=== PATIENT | female | born 1970 | race Caucasian/White ===

== ENCOUNTER → 2017-05-28 | Outpatient (CLI) | payer BC ==
[~2017-05-28] MED LIST: ESTRADIOL PO; SULF800T23 PO; [UNRECOGNIZED DRUG - CODE] SC
--- NOTE | 2017-05-28 08:41 | DIAGNOSTIC IMAGING REPORT ---
KUB HISTORY: 46-year-old female presents with urinary tract infection and history of kidney stones. COMPARISON: Renal scan 10/31/2016, KUB radiograph 07/04/2016. TECHNIQUE: KUB radiograph. FINDINGS: Cholecystectomy clips are noted. There is moderate volume of formed stool within the right hemicolon. No urolith is seen. No bowel structure or fracture. IMPRESSION: 1. No urolith identified. 2. Nonobstructive bowel gas pattern. Electronically signed by: Willie Mcgraw 05/28/2017 8:40 AM Dictated Date/Time: 05/28/2017 8:36 AM
[2017-05-28 09:48] LABS: ALT/SGPT 30 U/L (12-78); BLOOD UREA NITROGEN 13 mg/dl (7-18); BUN/CREATININE RATIO 14.4 (10-20); CALCIUM 9.2 mg/dl (8.5-10.1); CARBON DIOXIDE 28 mmol/L (21-32); CHLORIDE 103 mmol/L (98-107); CHOLESTEROL 181 mg/dl (0-200); CREATININE 0.89 mg/dl (0.60-1.20); GLUCOSE 87 mg/dl (70-99); POTASSIUM 3.8 mmol/L (3.5-5.1); SODIUM 138 mmol/L (136-145); TRIGLYCERIDES 81 mg/dl (0-150); VERY LOW DENSITY LIPOPROT CALC 16 mg/dl
[2017-05-28 09:57] LABS: ALKALINE PHOSPHATASE 76 U/L (45-117); AST/SGOT 20 U/L (15-37); CHOLESTEROL/HDL RATIO 3.6; HDL CHOLESTEROL 50 mg/dl; LDL CHOLESTEROL CALCULATED 115 mg/dl
== END | disposition home or self-care (01) ==
LOC: C.RAD 08:01
PROVIDERS: ATTEND Urology
DX: N39.0 Urinary tract infection, site not specified (principal); E23.0 Hypopituitarism; R79.89 Other specified abnormal findings of blood chemistry

== ENCOUNTER → 2017-08-05 | Outpatient (CLI) | payer BC | END | disposition home or self-care (01) | LOC: C.LAB 16:44 | PROVIDERS: ATTEND Nurse Practitioner Family | DX: R31.0 Gross hematuria (principal); N20.0 Calculus of kidney ==

== ENCOUNTER → 2017-11-21 | Outpatient (CLI) | payer BC ==
--- NOTE | 2017-11-21 15:58 | DIAGNOSTIC IMAGING REPORT ---
(RENAL)RETROPERITON COMP HISTORY: Pyelonephritis N39.0 Urinary tract infection, [id number] COMPARISON: None. FINDINGS: Right kidney: Maximum dimension 10.4 cm. No evidence for hydronephrosis. Normal corticomedullary differentiation and cortical thickness. Left kidney: Maximum dimension 11.5 cm. No evidence for hydronephrosis. Normal corticomedullary differentiation and cortical thickness. Bladder: No bladder wall thickening. The bilateral ureteral jets were identified. IMPRESSION: Normal renal ultrasound. The above report was generated using voice recognition software. It may contain grammatical, syntax or spelling errors. Electronically signed by: Rodger Davila M.D. 11/21/2017 3:57 PM Dictated Date/Time: 11/21/2017 3:56 PM
== END | disposition home or self-care (01) ==
LOC: C.ULTR 15:23
PROVIDERS: ATTEND Urology
DX: N39.0 Urinary tract infection, site not specified (principal)